=== PATIENT | female | born 1955 | race Caucasian/White ===

== ENCOUNTER 2017-12-23 10:39 | Emergency (ER) | payer BC ==
--- NOTE | 2017-12-23 11:38 | UC ---
Elbow Pain - HPI Summary HPI Summary: 62 yo female presents with right elbow pain. She tells me that 2 days ago she was in [facility] and was walking on a metal grate in the rain when she slipped and landed on her right elbow. Did not hit her head or have LOC. The next day her right elbow was bruised and swollen. She RICE'd and symptoms have improved today , but she admits that her friends encouraged her have it checked out. Denies numbness or tingling. - History of Current Complaint Stated Complaint: R ARM INJURY Hx Obtained From: Patient Onset/Duration: Days Severity Initially: Moderate Severity Currently: Mild Pain Intensity: 3 Pain Scale Used: 0-10 Numeric PMH/Surg Hx/FS Hx/Imm Hx - Additional Past Medical History Additional PMH: None - Family History Known Family History: Positive: None - Social History Occupation: Retired Lives: With Family Alcohol Use: Occasionally Substance Use Type: None Smoking Status (MU): Never Smoked Tobacco Review of Systems Constitutional: Negative Skin: Negative Respiratory: Negative Cardiovascular: Negative Neurovascular: Negative Musculoskeletal: Other: - Right elbow pain Neurological: Negative Psychological: Negative All Other Systems Reviewed And Are Negative: Yes Physical Exam - Summary Physical Exam Summary: GENERAL: NAD. WDWN. No pain distress. SKIN: No rashes, sores, lesions, or open wounds. CHEST: No accessory muscle use. Breathing comfortably and in no distress. CV: Pulses intact radial and ulnar. Cap refill <2seconds MSK: RIGHT ELBOW: Moderate edema at proximal forearm with overlying ecchymosis. Very mild TTP about this area without point tenderness. FROM without pain. Strength 5/5 including manager operating strength. NEURO: Alert. Sensations intact hand and all fingers. PSYCH: Age appropriate behavior. Triage Information Reviewed: Yes Vital Signs Reviewed: Yes Elbow Pain Course/Dx - Course Course Of Treatment: Suspect elbow contusion, unlikely that she has any fracture as she has FROM without pain and symptoms seem to be improving. Pt did not want an XR today, but will f/u if her symptoms worsen or persist. Advised to RICE and take tylenol for pain - Differential Dx/Diagnosis Provider Diagnoses: Right elbow contusion. Fall Discharge - Sign-Out/Discharge Documenting (check all that apply): Patient Departure All imaging exams completed and their final reports reviewed: No Studies - Discharge Plan Condition: Stable Disposition: HOME Patient Education Materials: Contusion in Adults (ED) Referrals: No Primary Care Phys,NOPCP [Primary Care Provider] - Additional Instructions: If you develop a fever, shortness of breath, chest pain, new or worsening symptoms - please call your PCP or go to the ED. - Billing Disposition and Condition Condition: STABLE Disposition: Home
[2017-12-23 12:11] VITALS: BP 156/96
== END 2017-12-23 11:40 | disposition home or self-care (01) ==
LOC: UCEAST 10:39
DX: S50.01XA Contusion of right elbow, initial encounter (principal); W01.0XXA Fall on same level from slipping, tripping and stumbling without subsequent striking against object, initial encounter; Y93.01 Activity, walking, marching and hiking; Y92.9 Unspecified place or not applicable
CPT/HCPCS: 99211; G0463